=== PATIENT | female | born 1935 | race Caucasian/White ===

== ENCOUNTER → 2023-09-01 12:20 | Outpatient (CLI) | payer OTHER, SELFPAY ==
[2023-03-12 15:25] VITALS: BMI 24.0
[2023-03-13 16:51] VITALS: O2SAT 96
[2023-03-13 19:15] VITALS: PULSE 72; RESP 0; RESP 15
--- NOTE | 2023-09-01 | DI.ECHO.S_ITS ---
[facility] +---------+ : : [address] : [address] [address] : : : : [id number] : : : : Phone: [phone] +---------+ Echocardiogram Report + + :Name: SYL HERNÁNDEZ Study Date: 09/01/2023 Height: 63 in : :[facility] ReadingLocation: Weight: 132 lb : : Gender: Female BSA: 1.6 m2 : :: 1935 Age: 88 yrs BP: 157/67 mmHg: :Reason For Study: NONRHEUMATIC MITRAL INSUFFICIENCY : :Ordering Physician: LISANDRO, : :ARACELI Vargas Performed By: Layla Pederson : :Referring: ARACELI SOSA : + + Interpretation Summary The ejection fraction is estimated to be 60-65%. Grade II diastolic dysfunction. The left atrium is moderately dilated. The right ventricle is normal in size and function. The right atrium is mildly dilated. There is moderate mitral regurgitation. There is mild tricuspid regurgitation. The right ventricular systolic pressure is estimated to be at least 43 mmHg based on an estimated right atrial pressure of 3 mm Hg. The ascending aorta is mildly enlarged. Compared to the prior study dated 03/13/2023, there has been a decrease in severity of MR. Procedure: A two-dimensional transthoracic echocardiogram with color flow and Doppler was performed. The study quality was technically adequate. Comparison is made with the echocardiogram of 03/13/2023. The heart rate ranged between 55-63 bpm during the study. Left Ventricle: The left ventricle is normal in size and wall thickness. The ejection fraction is estimated to be 60-65%. Diastolic parameters suggest a pseudonormalization pattern, consistent with probable elevated filling pressures. Right Ventricle: The right ventricle is normal in size and function. Atria: The left atrium is moderately dilated. The right atrium is mildly dilated. There is no Doppler evidence for an interatrial shunt. Mitral Valve: The mitral valve leaflets appear mildly thickened, but open well. There is mild mitral annular calcification. There is moderate mitral regurgitation. Aortic Valve: The aortic valve is trileaflet. The aortic valve opens well. There is no aortic valve stenosis. No aortic regurgitation is present. Tricuspid Valve: The tricuspid valve is normal. There is mild tricuspid regurgitation. The right ventricular systolic pressure is estimated to be at least 43 mmHg based on an estimated right atrial pressure of 3 mm Hg. Pulmonic Valve: The pulmonic valve leaflets are thin and pliable; valve motion is normal. There is mild pulmonic regurgitation. Great Vessels: The aortic root is normal size. The ascending aorta is mildly enlarged. The IVC is of normal diameter and collapses greater than 50% with a sniff. This suggests a low right atrial pressure of 3 mm Hg. Pericardium/ Pleura There is no pericardial effusion. There is no pleural effusion. MMode/2D Measurements & Calculations LVIDd: 4.2 cm LVOT diam: 2.0 cm LVIDs: 2.6 cm Ao root diam: 2.7 cm FS: 37.5 % asc Aorta Diam: 3.8 cm IVSd: 0.75 cm Ao Arch Diam (Prox Trans): 2.0 cm LVPWd: 0.96 cm LV armstrong. diameter/BSA (cm/m^2): 2.6 LV sys. diameter/BSA (cm/m^2): 1.6 LA A2 area: 21.2 cm2 RA long axis: 5.0 cm LA A4 area: 18.8 cm2 RA area: 17.7 cm2 LA length (vol): 5.1 cm RA vol: 53.0 ml LA vol: 66.6 ml RA : 32.7 ml/m2 LA vol index: 41.1 ml/m2 IVC diam: 1.8 cm RVD1 (basal): 3.7 cm RVD2 (mid): 2.9 cm TAPSE: 2.7 cm Doppler Measurements & Calculations Ao V2 max: 135.1 cm/sec LVOT Max Arvin: 81.7 cm/sec Ao V2 mean: 101.8 cm/sec LV V1 max P.7 mmHg Ao max P.3 mmHg LV V1 VTI: 23.1 cm Ao mean P.4 mmHg FRANCOIS(I,D): 1.9 cm2 Ao V2 VTI: 37.2 cm FRANCOIS(V,D): 1.9 cm2 sev ratio: 0.62 FRANCOIS indexed to BSA (cm^2/m^2): 1.2 MV E max arvin: 94.9 cm/sec TR max arvin: 316.7 cm/sec MV A max arvin: 106.8 cm/sec TR max P.1 mmHg MV E/A: 0.89 PA V2 max: 96.9 cm/sec Med Peak E' Arvin: 4.6 cm/sec PA V2 mean: 67.6 cm/sec E/E' med: 20.6 PA mean P.0 mmHg Lat Peak E' Arvin: 8.3 cm/sec PA pr(Accel): 43.0 mmHg E/E' lat: 11.4 E/e' average: 16.0 MV dec time: 0.23 sec SV(LVOT): 71.3 ml Reading Physician:05:08 PM
== END ==
LOC: ECHO 12:21
PROVIDERS: PCP Family Medicine; Referring Provider Internal Medicine Cardiovascular Disease; Visit Provider Internal Medicine Cardiovascular Disease
DX: I08.1 Rheumatic disorders of both mitral and tricuspid valves (principal); I77.89 Other specified disorders of arteries and arterioles
CPT/HCPCS: 93306